=== PATIENT | female | born 1985 | race Caucasian/White ===

== ENCOUNTER 2016-12-20 00:08 | Inpatient (IN) | payer OTHER ==
[~2016-12-20] VITALS: Ht 172.7 cm; Wt 98.0 kg
[2016-12-20] MEDS ORDERED: Lactated Ringer's 1,000 ML IV PRN (00:38)
[2016-12-20] MEDS ORDERED: Oxytocin 30 Units/500 mL LR 30 UNITS in IV Premix 1 EACH IV PRN ×2 (00:40→03:20)
[2016-12-20] MEDS ORDERED: Sodium Chloride LOK Flush 10 mL Syringe IVFLUSH PRN (00:40)
[2016-12-20] MEDS ORDERED: Hemorrhage Kit, Post Partum XX ONE ×2 (00:40→03:20)
[2016-12-20] MEDS ORDERED: Oxytocin 10 Unit/mL Inj IM PRN ×2 (00:40→03:20)
[2016-12-20] MEDS ORDERED: Penicillin G K Inj 5,000,000 UNITS in Dextrose 5% Minibag Plus 100 ML IV ONE (00:40)
[2016-12-20] MEDS ORDERED: fentaNYL-PF 50 mCg/mL 2 mL Inj IVPUSH PRN (00:40)
[2016-12-20] MEDS ORDERED: Methylergonovine 0.2 mg/mL Inj IM PRN ×2 (00:40→03:20)
[2016-12-20] MEDS ORDERED: Carboprost 250 mCg/mL Inj IM PRN ×2 (00:40→03:20)
[2016-12-20 01:24] LABS: Mean Corpuscular Hemoglobin 29.7 pg (27.0-35.0)
[2016-12-20] MEDS ORDERED: fentaNYL 2 mCg/mL-Bupivicaine 0.125% 100 mL Premix EPIDURAL ONE (01:35)
[2016-12-20] MEDS ORDERED: Atropine 1 mg/10 mL (Code) Syringe IVPUSH PRN (01:40)
[2016-12-20] MEDS ORDERED: Lactated Ringer's 1,000 ML IV SCH ×2 (01:40→03:19)
[2016-12-20] MEDS ORDERED: EPHEDrine Sulfate 50 mg/mL Inj IVPUSH PRN (01:40)
[2016-12-20] MEDS ORDERED: fentaNYL 2 mCg/mL-Bupiv 0.125% 100 ML EPIDURAL SCH (01:40)
[2016-12-20] MEDS ORDERED: Lactated Ringer's 500 ML IV ONE (01:40)
[2016-12-20] MEDS ORDERED: PREN-12 PO (02:23)
--- NOTE | 2016-12-20 02:24 | PCM.HPANE ---
Patient Data Surgeon Admitting Provider:Nazia Allison MD Attending Provider:Nazia Allison MD Primary Care Physician:Reddy Hinkle MD Other Provider:Roel Acosta Anesthesia Reason for Visit Active Labor ACTIVE LABOR Ht/WT & BMI Body Mass Index Allergies Coded Allergies: No Known Allergies (Unverified , 12/20/16) Past Anesthesia History Anesthesia History: Denies:: Abnormal Airway, Anesthesia Reactions, Difficult Intubation, Fam Anesthesia Reaction, Fam Malignant Hypertherm, Malignant Hyperthermia History History of ENT Problems?: No HEENT History: Denies:: Abnormal Airway Cataracts Difficult Intubation Dysphagia Glaucoma Hearing Problem Sinus Problem TMJ Denture Type: None Teeth Condition: Within Normal Limits Hx of Heart Problems?: No Cardiovascular History: Denies:: AICD Abdominal Aortic Aneurism Atrial Fibrillation Cardiac Surgery Chest Pain Congestive Heart Failure Coronary Artery Disease Edema Heart Murmur Hypertension Irregular Heartbeat Pacemaker Peripheral Vascular Rheumatic Fever Thrombophlebitis Valvular Heart Disease Hx of Respiratory Problem?: No Respiratory History: Denies:: Asthma COPD Chest Surgery Cough Dyspnea Emphysema Hemoptysis Oxygen Administration Pneumonia Pulmonary Embolism Tuberculosis Use of C-PAP Machine Use of Inhalers / NEBS Hx Neurologic Problems?: No Neurological History: Denies:: Alzheimer's Disease CVA Dementia Dizziness Headaches Multiple Sclerosis Parkinson's Disease Peripheral Neuropathy Seizures TIA Hx of GI Problems?: No Gastrointestinal History: Denies:: Cirrhosis Diverticulitis Gall Bladder Disease Gastroesphageal Reflux Gastrointestinal Bleeding Heartburn Hepatitis Hiatal Hernia Liver Disease Rectal Bleeding Hx of Problems?: No Genitourinary History: Denies:: HX of Hemodialysis Kidney Stones Urinary Tract Infection HX of Peritoneal Dialysis: No Female Hx: Positive for:: Currently Denies:: Endometriosis Pelvic Inflammatory Problems with Breasts? Skin History: Denies:: History Skin Disorders? Pressure Ulcers Hx Musculoskeletal Problems?: No Musculoskeletal History: Denies:: Back Injury Degenerative Joint Fibromyalgia Joint Replacement Musculoskeletal Trauma Myasthenia Gravis Osteoarthritis Rheumatoid Arthritis Systemic Lupus Hx of Psycho/Social Problems?: No Psycho Social History: Denies:: Anxiety Bipolar Disorder Hx Depression Suicide Attempt Hx Surgeries?: No Hx Any Other Health Problems?: No Other History: Denies:: Cancer Endocrine Disease Hospitalization Thyroid Disease History Blood Transfusions: Denies:: Accept Blood Products? Blood Transfuse Reaction Blood Transfusions Hx Diabetes: No Smoking Status: Never Smoker Stop/Bang Risk Assessment Category Category 1A: Patient has history of documented sleep apnea, and HAS NOT received any narcotic, sedative or anesthesia administration during this stay. Category 1B: Patient has history of documented sleep apnea, and HAS received any narcotic , sedative or anesthesia administration during this stay Category 2: Patient has SUSPECTED Obstructive Sleep Apnea, and HAS received any narcotic , sedative or anesthesia administration during this stay. Category 3: Patient has SUSPECTED Obstructive Sleep Apnea and HAS NOT received narcotic, sedative or anesthesia administration during this stay. Category 4: Outpatient in Procedural Areas with known sleep apnea or who screen positive for High Risk via the STOP/BANG questionnaire. Exam Exam General Appearance: Alert, Oriented X3, Cooperative, No Acute Distress HEENT/AIRWAY: MP 2, Neck Movement (FROM), Mouth Opening (3 FBMO) Lungs: Clear to Auscultation, Normal Air Movement Heart: Exam Unremarkable, Regular Rate/Rhythm, No Murmurs/Rubs/Gallops Meds/Labs/Diagnostics Admission Meds Current Medications Penicillin G Potassium/ Dextrose/Water (Pfizerpen Inj/ D5W Minibag Plus) 100 ml @ 240 mls/hr ONCE ONCE IV Last administered on 12/20/16t 01:29; Start at 00:40; Stop 12/20/16 at 01:04; Status DC Labs Test 12/20/16 01:05 White Blood Count 12.8th/mm3 (3.8-10.1) Red Blood Count 4.24mil/mm3 (3.90-5.20) Hemoglobin 12.6g/dL (12.0-15.6) Hematocrit 37.3% (35.0-46.0) Mean Corpuscular Volume 88.0fL (81-100) Mean Corpuscular Hemoglobin 29.7pg (27.0-35.0) Mean Corpuscular Hemoglobin Concent 33.8% (32.0-37.0) Red Cell Distribution Width 14.4% (12.3-15.4) Platelet Count 255bil/L (150-400) Plan Impression Patient chart reviewed, patient interviewed and anesthestic plan with risks, benefits, and alternatives discussed, and informed consent obtained. NPO per Anesth. Guidelines: Yes ASA Physical Status: ASA2 Mod Systemic Disease Anesthetic Plan: Epidural Bene/Risks/Altern/Consents: Yes HP Complete Prior to Induction: Yes Micheal Raman MD Dec 20, 2016 01:40
--- NOTE | 2016-12-20 03:01 | HP ---
[address] [address] HISTORY AND PHYSICAL PATIENT: HÉCTOR ORTIZ : 1985 MR#: [id number] ADMIT: 12/20/2016 JOB ID: [id number] HISTORY OF PRESENT ILLNESS: This is a 31-year-old female, 2, para 0-0-1-0, at 37 weeks plus 5 days presenting to [facility] for contractions and leaking fluid. She was confirmed rupture of membranes with clear fluid and contractions every 3-4 minutes. Her cervix was 4 cm dilated. INCOMPLETE DICTATION: Dictation ends here.
[2016-12-20] MEDS ORDERED: Benzocaine (Dermoplast) 20% 60 Gm Spray TOPICAL PRN (03:20)
[2016-12-20] MEDS ORDERED: Witch Hazel-Glycerin Pads TOPICAL PRN (03:20)
[2016-12-20] MEDS ORDERED: LANOlin HPA 7 Gm Ointment TOPICAL PRN (03:20)
--- NOTE | 2016-12-20 03:44 | HP ---
[address] [address] HISTORY AND PHYSICAL PATIENT: HÉCTOR ORTIZ : 1985 MR#: [id number] ADMIT: 12/20/2016 JOB ID: [id number] DATE OF SERVICE: 12/20/2016 HISTORY OF PRESENT ILLNESS: This is a 31-year-old female, 2, para 0-0-1-0 at 37 weeks plus 5 days presenting to [facility] for leaking of fluid and contractions. It was confirmed rupture of membranes with clear fluid and contraction every 3-4 minutes with cervix 4 cm dilated. This is a patient of [facility] with the late register because of unknown that she is . She presents for her care after 30 weeks of . Her labs showed that her blood type is O negative. Her Pap smear was satisfactory, but positive with HPV. Varicella immune, rubella immune, RPR negative, HBsAg negative, HIV negative. Chlamydia and gonorrhea negative. Her GCT was 141. The GTT 96, 147, 135 and 94. Her GBS positive. Anatomy scan has no abnormal finding. During her care, it was noticed her blood pressure started to be elevated at 33 weeks. She was sent to [facility] for evaluation and her preeclampsia labs was all normal and she was asymptomatic, and she never developed any symptoms of preeclampsia. ALLERGIES: The patient has no known drug allergies. PAST MEDICAL HISTORY: She has seasonal allergy. PAST SURGICAL HISTORY: Not significant. OBSTETRICAL HISTORY: She has one induced at 2004. GYNECOLOGIC HISTORY: Menarche at age of 12. Regular menstrual cycle at 28 days. SOCIAL HISTORY: Declined smoking. Declined taking alcohol or drug usage. FAMILY HISTORY: Not significant. PHYSICAL EXAMINATION: She is afebrile. Her blood pressure at admission was elevated mostly in the low elevated range occasionally systolic above 160 due to contraction. heart tracing category one. Contraction every 3-4 minutes, clear fluid, ruptured of the cervix 4 cm dilated. Cardiac RRR no murmur. Pulmonary bilaterally clear. Abdomen is soft, gravid, and nontender. Uterus well relaxed between contractions. Extremities nontender. DTRs normal. ASSESSMENT AND PLAN: A 31-year-old female, 2, para 0-0-1-0 at 37 weeks plus 5 days in active labor, rupture of membranes. 1. We will admit her to [facility]. 2. We will start antibiotics for GBS positive status. 3. The patient can get epidural for pain if she desires. 4. Expect a vaginal delivery. 5. We will monitor her blood pressure. 6. Will send preeclampsia labs. There is a possibility of starting magnesium if constant high-level elevated blood pressure.
--- NOTE | 2016-12-20 03:50 | OP ---
[address] [address] OPERATIVE REPORT PATIENT: HÉCTOR ORTIZ : 1985 MR#: [id number] ADMIT: 12/20/2016 JOB ID: [id number] DATE OF SURGERY: 12/28/2016 SURGEON: Nazia Allison MD PREOPERATIVE DIAGNOSIS(ES): POSTOPERATIVE DIAGNOSIS(ES): DESCRIPTION OF SURGERY: This is a 21-year-old female, 2, para 1-0-1-1 now at 37+ 737 weeks plus 5 days presented to [facility] for active labor. After admission, patient got epidural for pain management, and she progressed to full dilation quickly and then she had a good effort to push. The patient had a good progress with pushing. There was temporary deceleration with pushing but recovered well after the pushing. During the labor her blood pressure mostly in mildly elevated range, occasionally with systolics above 160. Diastolics mostly below 90s. With good effort pushing the infant descended well and the infant was delivered at STEPHANIE position. The shoulder and chest delivered without difficulty. The infant was placed on mother's chest. There was good and spontaneous cry. Cord clamped and cut after pulse disappeared. Regular cord blood collected. The placenta delivered spontaneously completely and examined with three-vessel cord. After delivery of the placenta, the uterus was well contracted. Then, the perineum examined with no significant laceration. The EBL during the delivery was about 200 cc. The patient tolerated the procedure well. All instrument, needles, laps, and gauzes counted correct twice.
[2016-12-20] MEDS ORDERED: Penicillin G K Inj 3,000,000 UNITS in IV Premix 1 EACH IV SCH (08:30)
--- NOTE | 2016-12-20 11:40 | PCM.ANEP1 ---
Post Anesthesia PACU Phase 1 Assessment Anesthetic Administered: Epidural Level of Alertness: Awake, talking Pain: No Pain Scale Score: 3 Nausea or Vomiting: No CV Function & Hydration Stable: Yes Airway Device: Lungs: Clear to Auscultation, Normal Air Movement PACU Phase 2 Assessment Complications: No Follow up Care: No Patient Instructions Provided: N/A Aldo Lepe MD Dec 20, 2016 11:40
[2016-12-21 06:32] LABS: Mean Corpuscular Hemoglobin 29.7 pg (27.0-35.0); Mean Corpuscular Volume 89.8 fL (81-100)
--- NOTE | 2016-12-21 07:28 | PCM.DIMED ---
Discharge Instructions Date of Service Dec 21, 2016 Dates of Hospitalization Dec 20, 2016 at 00:20 Diet Discharge Diet: No restrictions Activity Discharge Activity: No restrictions Call your provider Call your provider for: Fever or Chills, Shortness of breath, Bleeding, Chest pain, Vomitting, Excessive diarrhea, Weakness (unilateral) Alexander Mitchell MD Dec 21, 2016 07:28
[2016-12-21] MEDS ORDERED: IBUP-1827 PO (07:30)
[2016-12-21] MEDS ORDERED: DOCU-41 PO (07:30)
[2016-12-21] MEDS ORDERED: HYDR-4003 PO (07:30)
--- NOTE | 2016-12-21 08:08 | DIS ---
[address] [address] DISCHARGE SUMMARY PATIENT: HÉCTOR ORTIZ : 1985 MR#: [id number] ADMIT: 12/20/2016 JOB ID: [id number] DIS: 12/21/2016 ADMITTING DIAGNOSIS: A 21-year-old 2, para 0, at 37 weeks and seven days, spontaneous rupture of membranes, active labor. DISCHARGE DIAGNOSIS: A 21-year-old 2, para 1 status post spontaneous vaginal delivery at term. The patient is a 21-year-old, 2, para 1 now who came to Labor and Delivery shortly after midnight on December 20, 2016 with complaint of spontaneous rupture of membranes and contractions. She was examined. The cervix was 4 cm dilated. Initial test was positive confirming ruptured membranes, patient was admitted for delivery. As per patient request, she received an epidural. Her care was uncomplicated. She was getting vitamins and ferrous sulfate for anemia. The patient is Rh negative. Her group B strep culture was negative. The patient had intermittent elevation of blood pressure during active labor. She has not had any issues with the blood pressure . She has delivered female two hours after admission to the hospital at 2:54 a.m. with score 9 at one minute and 9 at five minutes. Weight 3116 g. The patient has not had any lacerations, EBL was 200 mL. On the following day, December 21, 2016, the patient was ambulating, breast-feeding, tolerating regular foods. Vitals were stable. The examination showed firm uterus located at the level of the umbilicus, firm, nontender. The pain was well controlled with Motrin 600 mg p.o. t.i.d. p.r.n. The patient received RhoGAM injection . She was discharged home on day one, December 21, 2016 with all discharge criteria met. She received discharge medications includin. Motrin 600 mg p.o. t.i.d. p.r.n. 2. Colace 100 mg p.o. daily. 3. Vicodin 5-325 mg p.o. t.i.d. p.r.n. Follow up visit in the clinic is scheduled in six weeks.
[2016-12-21 13:51] VITALS: BP 125/63; PULSE 80; RESP 17
== END 2016-12-21 14:24 | disposition home or self-care (01) | DRG 775 ==
LOC: FBCO 00:08 → FBC 00:20
PROVIDERS: ADMIT Obstetrics & Gynecology; ATTEND Obstetrics & Gynecology
PROC: 10E0XZZ Delivery of Products of Conception, External Approach (ICD-10-PCS; principal; 2016-12-20)
DX: O13.4 Gestational [pregnancy-induced] hypertension without significant proteinuria, complicating childbirth (principal); O99.824 Streptococcus B carrier state complicating childbirth; Z3A.37 37 weeks gestation of pregnancy; Z37.0 Single live birth